=== PATIENT | male | born 1955 | race Caucasian/White ===

== ENCOUNTER 2016-12-23 08:12 | Day surgery (SDC) | payer OTHER, BC ==
[2016-12-23] MEDS ORDERED: D5 LR 1000 ML 1,000 ML IV ONE (08:57)
[2016-12-23] MEDS ORDERED: NS 1000 ML 1,000 ML ONE (09:23)
[2016-12-23] MEDS ORDERED: DIPRIVAN VIAL 20 ML ONE (10:37)
[2016-12-23 11:33] VITALS: BP 119/60
== END 2016-12-23 11:15 | disposition home or self-care (01) ==
LOC: SURG1 08:12
PROVIDERS: ATTEND Internal Medicine Gastroenterology
PROC: 0DB68ZX Excision of Stomach, Via Natural or Artificial Opening Endoscopic, Diagnostic (ICD-10-PCS; principal; 2016-12-23 10:30)
PROC: 0DB88ZX Excision of Small Intestine, Via Natural or Artificial Opening Endoscopic, Diagnostic (ICD-10-PCS; principal; 2016-12-23 10:30)
PROC: 0DJ08ZZ Inspection of Upper Intestinal Tract, Via Natural or Artificial Opening Endoscopic (ICD-10-PCS; principal; 2016-12-23 10:30)
DX: D50.8 Other iron deficiency anemias (principal); K20.8 Other esophagitis; K22.10 Ulcer of esophagus without bleeding; K25.9 Gastric ulcer, unspecified as acute or chronic, without hemorrhage or perforation; K29.60 Other gastritis without bleeding; Z87.11 Personal history of peptic ulcer disease
CPT/HCPCS: A4217; J3490; J7120

== ENCOUNTER → 2017-02-08 | Outpatient (CLI) | payer OTHER, BC ==
--- NOTE | 2017-02-08 15:23 | RAD ---
HISTORY: Low back pain. Study: Five views of the lumbar spine. Comparison: None available. Findings: 5 dhk-[id number]-nlnrokh lumbar vertebra. Mild dextro curvature of the lumbar spine. No acute fracture or l isthesis. Multilevel mild disc space narrowing with associated endplate sclerosis and anterior disc osteophyte complexes. Multilevel facet arthrosis. The visualized SI joints appear normal. Dense calc ifications are seen of the abdominal aorta and its major branching vessels. No obvious abdominal aor tic aneurysm. Suggestion of a 2.2 cm right common iliac artery aneurysm. Remaining soft tissues appe ar normal. IMPRESSION: 1. Chronic findings of the lumbar spine as above. 2. Suggestion of a 2.2 cm right common iliac artery aneurysm. Recommend dedicated aortic ultrasound for further characterization. Reported By:
--- NOTE | 2017-02-08 15:27 | RAD ---
HISTORY: Chronic left knee pain Study: Three views left knee Comparison: None Findings: No acute cortical disruption or dislocation can be identified. No significant soft tissue swelling or injury can be seen. There is no large effusion. Mild prepatellar soft tissue swelling is noted. The patient has undergone previous open reduction and internal fixation of the tibia without peripro sthetic lucency to suggest acute or chronic hardware failure. There is moderate medial compartmental DJD. Lateral meniscal chondrocalcinosis is noted. There are descending vascular calcifications. No destructive osseous lesions are seen. IMPRESSION: Postsurgical and degenerative changes without acute bony radiographic abnormality. Reported By:
== END ==
LOC: RAD 14:05
PROVIDERS: ATTEND Orthopaedic Surgery
DX: M54.89 Other dorsalgia (principal); M79.89 Other specified soft tissue disorders; M17.12 Unilateral primary osteoarthritis, left knee
CPT/HCPCS: 72110; 73564

== ENCOUNTER → 2017-05-10 | Outpatient (CLI) | payer OTHER, BC ==
--- NOTE | 2017-05-10 11:36 | RAD ---
History: Right knee pain Study: AP and oblique and lateral and sunrise views of the right knee Comparison: None Findings: There is no fracture or dislocation or joint effusion. There is no significant osteophyte f ormation or joint space narrowing. Impression: No acute disease Reported By:
== END ==
LOC: RAD 10:59
PROVIDERS: ATTEND Orthopaedic Surgery
DX: M25.561 Pain in right knee (principal)
CPT/HCPCS: 73564

== ENCOUNTER 2017-08-11 10:57 | Day surgery (SDC) | payer OTHER, BC ==
[2017-08-11] MEDS ORDERED: D5 LR 1000 ML 1,000 ML IV ONE (11:01)
[2017-08-11] MEDS ORDERED: NS 1000 ML 1,000 ML ONE (11:21)
[2017-08-11] MEDS ORDERED: DIPRIVAN VIAL 20 ML ONE (12:23)
[2017-08-11 13:29] VITALS: BP 130/63
== END 2017-08-11 13:05 | disposition home or self-care (01) ==
LOC: SURG1 10:57
PROVIDERS: ATTEND Internal Medicine Gastroenterology
PROC: 0DB68ZX Excision of Stomach, Via Natural or Artificial Opening Endoscopic, Diagnostic (ICD-10-PCS; principal; 2017-08-11 17:30)
PROC: 0DJ08ZZ Inspection of Upper Intestinal Tract, Via Natural or Artificial Opening Endoscopic (ICD-10-PCS; principal; 2017-08-11 17:30)
DX: K25.9 Gastric ulcer, unspecified as acute or chronic, without hemorrhage or perforation (principal); K21.9 Gastro-esophageal reflux disease without esophagitis; R10.13 Epigastric pain; K20.8 Other esophagitis
CPT/HCPCS: A4217; J3490; J7120

== ENCOUNTER → 2017-08-25 | Outpatient (CLI) | payer OTHER, BC ==
[2017-08-11 13:29] VITALS: BP 130/63
--- NOTE | 2017-08-25 13:13 | RAD ---
Examination: Chest, PA and lateral views History: Preop back surgery Comparison reference 10/27/2016 Findings: Continued normal heart size with tortuous aorta, lungs and pleural spaces clear of active d isease. Stable granuloma right lung base. Healed left 5th rib fracture. Impression: No significant interval change or acute abnormality demonstrated. Reported By:
== END ==
LOC: RAD 12:50
PROVIDERS: ATTEND Internal Medicine Nephrology
DX: Z01.818 Encounter for other preprocedural examination (principal); I12.9 Hypertensive chronic kidney disease with stage 1 through stage 4 chronic kidney disease, or unspecified chronic kidney disease; N18.5 Chronic kidney disease, stage 5; M47.896 Other spondylosis, lumbar region
CPT/HCPCS: 71020

== ENCOUNTER → 2017-09-20 | Outpatient (CLI) | payer OTHER, BC ==
[2017-09-20 12:04] LABS: BASOPHILS # (AUTO) 0.1 X10^3/uL (0.0-0.1); BASOPHILS % (AUTO) 1.3 % (0.2-1.0); EOSINOPHILS # (AUTO) 0.2 x10^3/uL (0.0-0.2); EOSINOPHILS % (AUTO) 3.7 % (0.9-2.9); HEMATOCRIT 36.3 % (42.0-54.0); HEMOGLOBIN 12.2 g/dL (13.5-18.0); LYMPHOCYTES # (AUTO) 1.4 X10^3/uL (1.3-2.9); MEAN CORPUSCULAR HEMOGLOBIN 33.9 pg (27.0-34.0); MEAN CORPUSCULAR HGB CONC 33.6 g/dL (33.0-35.0); MEAN CORPUSCULAR VOLUME 100.9 fL (80.0-100.0); MEAN PLATELET VOLUME 8.9 fL (7.4-11.0); MONOCYTES # (AUTO) 0.6 x10^3/uL (0.3-0.8); MONOCYTES % (AUTO) 12.1 % (0.0-13.0); NEUTROPHILS % (AUTO) 56.9 % (42.0-75.0); PLATELET COUNT 261 X10^3/uL (150.0-450.0); RED CELL DISTRIBUTION WIDTH 14.6 % (11.6-16.5); WHITE BLOOD COUNT 5.3 X10^3/uL (3.6-10.0)
[2017-09-20 12:19] LABS: BLOOD UREA NITROGEN 36 mg/dL (7-18); CALCIUM 9.1 mg/dL (8.5-10.1); CARBON DIOXIDE 26.9 mmol/L (21-32); CHLORIDE 102 mmol/L (98-107); CREATININE 5.29 mg/dL (0.70-1.30); SODIUM 143 mmol/L (136-145); eGFR BLACK RACES 14 (>60); eGFR NON BLACK RACES 12 (>60)
[2017-09-20 12:24] LABS: BAND NEUTROPHILS % 2 % (0-10)
[2017-09-20 12:25] LABS: PLATELET MORPHOLOGY COMMENT NORMAL (NORMAL)
[2017-09-20 12:42] LABS: ERYTHROCYTE SEDIMENTATION RATE 39 MM/HOUR (0-15)
--- NOTE | 2017-09-20 13:23 | RAD ---
Examination: Chest, PA and lateral views History: Preop spine surgery Comparison 08/25/2017 Findings: Continued normal heart size, arteriosclerotic aorta, stable right lower lung granuloma. No acute infiltrate, pulmonary edema or pleural fluid. Impression: No change; no acute findings. Reported By:
[2017-09-20 13:43] LABS: BILIRUBIN,URINE NEGATIVE (NEGATIVE); BLOOD/HEMOGLOBIN,URINE 2+ (NEGATIVE); GLUCOSE, URINE NEGATIVE (NEGATIVE); KETONES,URINE NEGATIVE (NEGATIVE); LEUKOCYTE ESTERASE ,URINE NEGATIVE (NEGATIVE); NITRITES,URINE NEGATIVE (NEGATIVE); PROTEIN,URINE 3+ (NEGATIVE); UROBILINOGEN,URINE NORMAL (NORMAL)
[2017-09-20 13:54] LABS: AMORPHOUS SEDIMENT,UR 1+ /HPF (NEGATIVE); APPEARANCE,URINE CLEAR (CLEAR); BACTERIA,URINE NEGATIVE /HPF (NEGATIVE); COLOR,URINE YELLOW (YELLOW); SQUAMOUS EPITHELIAL CELL,UR RARE /HPF (NEGATIVE)
== END | disposition home or self-care (01) | DRG 951 ==
LOC: LAB 11:38
PROVIDERS: ATTEND Orthopaedic Surgery
DX: Z01.812 Encounter for preprocedural laboratory examination (principal); Z01.810 Encounter for preprocedural cardiovascular examination; Z01.811 Encounter for preprocedural respiratory examination; Z11.8 Encounter for screening for other infectious and parasitic diseases; M54.5 Low back pain; M54.32 Sciatica, left side
CPT/HCPCS: 36415; 71046; 80048; 81001; 85025; 85610; 85652; 85730; 87640; 87641; 93005; 93010

== ENCOUNTER → 2017-11-07 | Outpatient (CLI) | payer OTHER, BC ==
--- NOTE | 2017-11-07 12:23 | CT ---
HISTORY: Lumbar spine surgery approximately 3 weeks ago. Patient feels like device is moving. Study: CT lumbar spine without contrast Comparison: Lumbar spine series dated February 08, 2017. Technique: Multiple axial images of the lumbar spine were obtained from the thoracolumbar junction t o the sacrum without the administration of IV contrast. Sagittal and coronal reformats were performe d and reviewed. Dose reduction techniques including Automated Exposure Control (AEC) and adjustment of mA and kV were utilized. Findings: Patient is status post interval posterior fusion of the L3-L4 vertebral bodies with associated disc s pacer. The hardware appears intact. However, there is a comminuted fracture of the posterior L3 verte bral body and bilateral L3 transverse processes. No significant retropulsion or fracture fragments. E xpected postsurgical changes from recent procedure. No other areas of fracture or listhesis. Bilatera l L5 pars defects that appear unchanged given technique without significant listhesis. Mild right dex trocurvature appears unchanged. Multilevel [id number] neural foraminal narrowing. No significan t spinal canal stenosis. Vascular calcifications of the abdominal aorta without evidence of aneurysma l dilatation. There is aneurysmal dilatation of the right common iliac artery to 1.8 cm. Remaining so ft tissue structures are unremarkable. IMPRESSION: 1. Postsurgical changes at L3-L4 as above with a comminuted fracture of the L3 vertebral body of unk nown chronicity. The hardware otherwise appears intact. 2. Other chronic findings as above. Reported By:
== END | disposition home or self-care (01) ==
LOC: RAD 11:07
PROVIDERS: ATTEND Physician Assistant
DX: M54.5 Low back pain (principal); M54.32 Sciatica, left side; M25.552 Pain in left hip; Z98.890 Other specified postprocedural states; S32.038A Other fracture of third lumbar vertebra, initial encounter for closed fracture; X58.XXXA Exposure to other specified factors, initial encounter
CPT/HCPCS: 72131